=== PATIENT | female | born 1965 | race Caucasian/White ===

== ENCOUNTER → 2018-03-10 | Outpatient (CLI) | payer BC, OTHER ==
[~2018-03-10] MED LIST: ACET325T26 PO; ASPI-650 PO; HYDR-3237 PO; VENL37.52 PO; ZOLP-413 PO
== END | disposition home or self-care (01) ==
LOC: STAR 13:40
PROVIDERS: ATTEND Orthopaedic Surgery
DX: Z02.9 Encounter for administrative examinations, unspecified (principal)

== ENCOUNTER 2018-03-12 10:36 | Inpatient (IN) | payer BC, OTHER, SELFPAY ==
[2018-03-10 15:03] LABS: MICROSCOPIC NOT IND
[2018-03-10 15:11] LABS: CULTURE INDICATED? NO
[~2018-03-12] VITALS: Ht 160 cm; Wt 90.5 kg
[~2018-03-12 10:36] MED LIST changes: -ASPI-650 PO; +CLINDAMYCIN 150 MG/ML, 6ML ONE
[2018-03-12] MEDS ORDERED: MIDAZOLAM 1 MG/ML, 2ML ONE (11:04)
[2018-03-12] MEDS ORDERED: FENTANYL PF 250 MCG/5ML ONE (11:04)
[2018-03-12] MEDS ORDERED: LACTATED RINGERS 1,000 ML IV SCH (11:14)
[2018-03-12] MEDS ORDERED: GABAPENTIN 300 MG CAPSULE PO ONE (11:30)
[2018-03-12] MEDS ORDERED: BUPIVACAINE/PF 0.5% ONE ×2 (11:36)
[2018-03-12] MEDS ORDERED: methylPREDNISolone*ACETATE* 80 MG/ML ONE (11:36)
[2018-03-12] MEDS ORDERED: D5%-0.45% NACL 1,000 ML IV SCH (11:41)
[2018-03-12] MEDS ORDERED: ONDANSETRON 2MG/ML, 2ML ONE (11:54)
[2018-03-12] MEDS ORDERED: LIDOCAINE PF 2%, 5ML ONE (11:54)
[2018-03-12] MEDS ORDERED: PROPOFOL 10 MG/ML, 50ML ONE (11:54)
[2018-03-12] MEDS ORDERED: DEXAMETHASONE 4 MG/ML, 1ML ONE (11:54)
[2018-03-12] MEDS ORDERED: CEFAZOLIN 1,000 MG ONE (11:54)
[2018-03-12] MEDS ORDERED: TRANEXAMIC ACID 100 MG/ML, 10ML ONE (12:00)
[2018-03-12] MEDS ORDERED: ACETAMINOPHEN 650 MG/20.3 ML UDC PO PRN (12:00)
[2018-03-12] MEDS ORDERED: BISACODYL 10 MG SUPP PR PRN (12:00)
[2018-03-12] MEDS ORDERED: SENNA/DOCUSATE TABLET PO PRN (12:00)
[2018-03-12] MEDS ORDERED: ONDANSETRON 4 MG TABLET PO PRN (12:00)
[2018-03-12] MEDS ORDERED: morphine SULFATE 10 MG/ML, 1ML IV PRN (12:00)
[2018-03-12] MEDS ORDERED: PROMETHAZINE 12.5 MG SUPP PR PRN (12:00)
[2018-03-12] MEDS ORDERED: MAGNESIUM HYDROXIDE 8%, 30ML UDC PO PRN (12:00)
[2018-03-12] MEDS ORDERED: DIAZEPAM 5 MG TABLET PO PRN (12:00)
[2018-03-12] MEDS ORDERED: ONDANSETRON 2MG/ML, 2ML IV PRN ×2 (12:00→13:00)
[2018-03-12] MEDS ORDERED: ZOLPIDEM 5MG TABLET PO PRN (12:00)
[2018-03-12] MEDS ORDERED: OXYcodone/APAP 5/325MG TABLET PO PRN (12:00)
[2018-03-12] MEDS ORDERED: DIPHENHYDRAMINE 50 MG CAPSULE PO PRN (12:00)
[2018-03-12] MEDS ORDERED: ASPI-650 PO (12:00)
[2018-03-12] MEDS ORDERED: FENTANYL PF 100 MCG/2ML ONE ×3 (12:53→13:58)
[2018-03-12] MEDS ORDERED: PROCHLORPERAZINE 5 MG/ML, 2ML IV PRN (13:00)
[2018-03-12] MEDS ORDERED: OXYcodone 5 MG/5 ML ORAL.SOL UDC PO PRN (13:00)
[2018-03-12] MEDS ORDERED: DIAZEPAM 5 MG/ML, 2ML IVPush PRN (13:00)
[2018-03-12] MEDS ORDERED: ONDANSETRON ODT 8 MG PO PRN (13:00)
[2018-03-12] MEDS ORDERED: LABETALOL 5MG/ML, 20ML IV PRN (13:00)
[2018-03-12] MEDS ORDERED: MORPHINE SULFATE 4 MG/ML, 1ML IVPush PRN (13:00)
[2018-03-12] MEDS ORDERED: hydrALAzine 20 MG/ML, 1ML IV PRN (13:00)
[2018-03-12] MEDS ORDERED: HYDROmorphone 2 MG/ML, 1ML ONE ×2 (13:38→14:25)
[2018-03-12] MEDS ORDERED: OXYcodone 5 MG/5 ML ORAL.SOL UDC ONE (13:38)
[2018-03-12] MEDS ORDERED: LORazepam 2 MG/ML, 1ML ONE (13:38)
[2018-03-12] MEDS: LORazepam 2 MG/ML, 1ML IVPush PRN ×2 (13:41→14:16)
[2018-03-12] MEDS: FENTANYL PF 100 MCG/2ML IV PRN ×3 (13:42→13:59)
[2018-03-12] MEDS: HYDROmorphone 1 MG/ML, 1ML IV PRN ×6 (13:45→14:43)
[2018-03-12] MEDS ORDERED: LABETALOL 20 MG/4 ML ONE (14:27)
[2018-03-12] MEDS: OXYcodone IR 5MG TABLET PO SCH ×3 (15:00→20:44)
[2018-03-12] MEDS ORDERED: CEFAZOLIN PMX 2GM/50ML 50 ML IVPB SCH (16:00)
[2018-03-12 20:00] VITALS: BP 126/85
[2018-03-12] MEDS ORDERED: DOCUSATE 100 MG CAPSULE PO SCH (21:00)
[2018-03-13] MEDS ORDERED: ASPIRIN 325 MG TABLET EC PO SCH (06:00)
[2018-03-13] MEDS ORDERED: KETOROLAC 30 MG/1 ML IV SCH (12:00)
== END 2018-03-12 22:08 | disposition home or self-care (01) | DRG 470 ==
LOC: OUT 10:36 → ORIP 11:41 → 4NOR 15:20
PROVIDERS: ADMIT Orthopaedic Surgery; ATTEND Orthopaedic Surgery
PROC: 3E0U33Z Introduction of Anti-inflammatory into Joints, Percutaneous Approach (ICD-10-PCS; 2018-03-12)
PROC: 3E0U3BZ Introduction of Anesthetic Agent into Joints, Percutaneous Approach (ICD-10-PCS; 2018-03-12)
PROC: 3E0T3BZ Introduction of Anesthetic Agent into Peripheral Nerves and Plexi, Percutaneous Approach (ICD-10-PCS; 2018-03-12)
PROC: 0SRC069 Replacement of Right Knee Joint with Oxidized Zirconium on Polyethylene Synthetic Substitute, Cemented, Open Approach (ICD-10-PCS; principal; 2018-03-12 12:20)
DX: M17.0 Bilateral primary osteoarthritis of knee (principal); Z90.710 Acquired absence of both cervix and uterus; Z87.891 Personal history of nicotine dependence
CPT/HCPCS: 73560; S0077; 81003; 87081; 87147; C1713; G0378; J0690; J1100; J1170; J2250; J2405; J2704; J3010; J3490; C1776; J1040; J2060; J7120